=== PATIENT | male | born 1960 | race Hispanic/Latino ===

== ENCOUNTER 2017-07-03 08:08 | Emergency (ER) | payer OTHER ==
[~2017-07-03] VITALS: Ht 165.1 cm; Wt 68.0 kg
[~2017-07-03 08:08] MED LIST: BP MED; CARVEDILOL6.25 MG PO; LISINOPRIL-HCT1 EACH PO; NAPROXEN500 MG PO
[2017-07-03] MEDS ORDERED: FLAGYL500 MG PO (10:51)
[2017-07-03] MEDS ORDERED: CIPRO500 MG PO (10:51)
== END 2017-07-03 11:10 | disposition home or self-care (01) ==
LOC: ED 08:08
DX: K57.92 Diverticulitis of intestine, part unspecified, without perforation or abscess without bleeding (principal); K57.30 Diverticulosis of large intestine without perforation or abscess without bleeding; I10 Essential (primary) hypertension
CPT/HCPCS: 74177; 80053; 81001; 85025; 96360; 99284; J7120; Q9967

== ENCOUNTER 2019-10-06 08:17 | Day surgery (SDC) | payer OTHER ==
--- NOTE | 2019-09-24 16:32 | NUR ---
SPOKE TO PT TODAY REGUARDING COVID TEST NEEDED PRIOR TO PROCEDURE WITH DR. ZUNIGA ON OCT 05. HE REPORTS HE HAD POSSITIVE TEST IN AUGUST AND WAS SYMTOMATIC HE REPORTS HE DOES NOT HAVE SYMTOMS CURRENTLY. PT WILL BE IN FOR COVID TEST ON OCT 03, 2019 FOR TEST
[~2019-10-06] VITALS: Ht 165.1 cm; Wt 68.0 kg
[~2019-10-06 08:17] MED LIST changes: +CIPRO500 MG PO; +FLAGYL500 MG PO
[2019-10-06] MEDS ORDERED: LISINOPRIL-HCT1 EACH PO (08:52)
--- NOTE | 2019-10-06 11:26 | NUR ---
10/06/19 1126 Marichuy Dowling 1040 PT ARRIVED IN PACU SLEEPY WITH NO C/O'S. 1055 AWAKE TALKING TO STAFF. 1105 SITTING UP IN BED SIPPING ON WATER. 1115 DC INSTRUCTIONS GIVEN. ALL QUESTIONS ANSWERED. LEFT VIA W/C.
--- NOTE | 2019-10-06 23:44 | OR ---
[facility] [address], [place] [address] Signed DATE OF OPERATION: 10/06/2019 SURGEON: Marianne Zuniga MD PREOPERATIVE DIAGNOSES: 1. Personal history of colonic polyps in 2015 (54 years old). 2. Diverticulosis. POSTOPERATIVE DIAGNOSES: 1. 4 mm polyps x2 at 35 cm. 2. Iehwntm-sj-hdiqckjy sigmoid diverticulosis. 3. Minimal internal hemorrhoids. PROCEDURE: Colonoscopy with hot biopsy. ESTIMATED BLOOD LOSS: None. INDICATIONS: Matt is a 59-year-old gentleman, asked to see me for a followup colonoscopy. He has no lower GI complaints. There is no family history of colon cancer or polyps. He had adenomatous polyps removed back in May 2014. He is also known to have sigmoid diverticulosis. In the office, I gave Matilde pamphlet on colonoscopy and we looked at that together along with the risks including, but not limited to gas bloating, crampy abdominal pain, bleeding, perforation requiring surgery, and missed diagnosis. I had reviewed the written instructions of the bowel prep with Matt in detail. I explained to Matt that it was exact same bowel prep we used 5 years ago. He also recalls the need for IV conscious sedation. He had expressed understanding and wished to proceed. PROCEDURE NOTE: Matt was taken into our endoscopy suite and placed in the left lateral decubitus position. He was given IV sedation with 5 mg of Versed and 150 mcg of fentanyl. A digital rectal exam was performed and he does have an indurated fvvd-ms-dijnssxwpo enlarged prostate gland, fairly prominent on both sides of the prostate. After this, the adult colonoscope was introduced and advanced all around into the cecum under direct visualization of the camera. It took just a little abdominal compression to move the scope directly into the cecum itself. His prep was good. We could easily see the appendiceal orifice and the ileocecal valve. The scope was then slowly withdrawn. We took pictures throughout for photodocumentation. He had 2 tiny polyps back at 35 cm, Electronically Signed By: MARIANNE ZUNIGA MD 10/06/19 2344 PATIENT NAME: MATT FLORENTINO OPERATIVE REPORT DATE OF : 58 REPORT #: [id number] PHYSICIAN: MARIANNE ZUNIGA MD PCP: BRENDA PRADHAN PAC REPORT IS CONFIDENTIAL AND NOT TO BE RELEASED WITHOUT AUTHORIZATION [facility] [address], [place] [address] Signed which we removed with a hot biopsy forceps. Once again, he has eaxlpko-yk-wsnpgwfs sigmoid diverticulosis. The rectum was unremarkable. Upon retroflexion of scope, he has very minimal internal hemorrhoid tissue. After this, the gas was suctioned out. The colonoscope removed. Matt tolerated the procedure quite well. RECOMMENDATIONS: I will see Matt back in my office in 7 to 14 days to review his results. MD LYUDMILA Miles/CAESARL /[id number] cc: MD Dr. Jesus Miles Chart Filed Incomplete Copies: MARIANNE ZUNIGA MD CHART FILED INCOMPLETE ~ Electronically Signed By: MARIANNE ZUNIGA MD 10/06/19 2344 PATIENT NAME: MATT FLORENTINO OPERATIVE REPORT DATE OF : 58 REPORT #: [id number] PHYSICIAN: MARIANNE ZUNIGA MD PCP: BRENDA PRADHAN PAC REPORT IS CONFIDENTIAL AND NOT TO BE RELEASED WITHOUT AUTHORIZATION
--- NOTE | 2019-10-07 16:47 | PATH ---
[facility] [address], [place] [address] Signed SPECIMEN(S): A COLON POLYP AT 35 CM SPECIMEN SOURCE: A. COLON POLYP AT 35 CM CLINICAL HISTORY: Follow-up colonoscopy for history of polyps/diverticulosis; colon polyps; internal hemorrhoids. MICROSCOPIC DESCRIPTION: Histologic sections of all submitted blocks are examined by light microscopy. These findings, together with the gross examination, support the pathologic diagnosis. FINAL PATHOLOGIC DIAGNOSIS: Colon, polyp at 35 cm, polypectomy: - Fragments of cauterized colonic mucosa with no histopathologic abnormality. - Negative for dysplasia or malignancy. COMMENT: Prominent mucosal lymphoid aggregates are present, which can sometimes be identified as polypoid masses during colonoscopy. Clinical correlation required. NAL:cml:C2NR GROSS DESCRIPTION: The specimen, labeled "LEATHA," and designated on the requisition "colon polypectomy at 35 cm," is received in formalin and consists of three fragments of pink-chowdhury tissue (2.4 x 0.4 x 0.2 cm in aggregate). The specimen is submitted entirely in cassette (A1). AC (under the direct supervision of a pathologist) The Gross Description was prepared using a voice recognition system. The report was reviewed for accuracy; however, sound-alike word errors, addition and/or deletions may occur. If there is any question about this report, please contact Client Services. PERFORMING LABORATORY: The technical component was performed by [facility], [address] [place] [id number] ([employer]: Beatriz Wilcox MD; CLIA# [id number]). [facility], [address] [address] (CLIA# [id number]). PATIENT NAME: BRIT FLORENTINO PATHOLOGY DATE OF : 58 REPORT #: [id number] PHYSICIAN: [facility] PCP: BRENDA PRADHAN PAC REPORT IS CONFIDENTIAL AND NOT TO BE RELEASED WITHOUT AUTHORIZATION [address] [place], [place] [address] Signed Diagnostician: Romy Potter MD Pathologist Electronically Signed 10/07/2019 Copies: ~ PATIENT NAME: BRIT FLORENTINO PATHOLOGY DATE OF : 58 REPORT #: [id number] PHYSICIAN: [facility] PCP: BRENDA PRADHAN PAC REPORT IS CONFIDENTIAL AND NOT TO BE RELEASED WITHOUT AUTHORIZATION
== END 2019-10-06 11:15 | disposition home or self-care (01) ==
LOC: OPS 08:17 → DS 08:20 → OPS 09:45
PROVIDERS: Colon & Rectal Surgery
PROC: 0DBE8ZZ Excision of Large Intestine, Via Natural or Artificial Opening Endoscopic (ICD-10-PCS; principal; 2019-10-06 09:45)
DX: K63.5 Polyp of colon (principal); K64.8 Other hemorrhoids; K57.30 Diverticulosis of large intestine without perforation or abscess without bleeding; I10 Essential (primary) hypertension; N40.0 Benign prostatic hyperplasia without lower urinary tract symptoms; Z86.010 Personal history of colon polyps; Z79.899 Other long term (current) drug therapy; Z79.82 Long term (current) use of aspirin; Z87.891 Personal history of nicotine dependence
CPT/HCPCS: 99153; G0500; J2250; J3010; J7121

== ENCOUNTER 2020-09-02 05:40 | Day surgery (SDC) | payer SELFPAY ==
[~2020-09-02] VITALS: Ht 165.1 cm; Wt 65.0 kg
[2020-09-02] MEDS ORDERED: HYDROCODON-ACE1 EA10 PO (08:03)
== END 2020-09-02 10:40 | disposition home or self-care (01) ==
LOC: DS 05:40
PROVIDERS: ATTEND Specialist
PROC: 3E0T3BZ Introduction of Anesthetic Agent into Peripheral Nerves and Plexi, Percutaneous Approach (ICD-10-PCS; 2020-09-02)
PROC: 01X40Z4 Transfer Ulnar Nerve to Ulnar Nerve, Open Approach (ICD-10-PCS; principal; 2020-09-02 06:45)
DX: G56.22 Lesion of ulnar nerve, left upper limb (principal); G89.18 Other acute postprocedural pain; I10 Essential (primary) hypertension
CPT/HCPCS: 01710; 64415; 64417; 76942; J0690; J1100; J1885; J2250; J7121

== ENCOUNTER 2021-11-13 10:40 | Day surgery (SDC) | payer OTHER ==
[~2021-11-13] VITALS: Ht 165.1 cm; Wt 77.3 kg
[~2021-11-13 10:40] MED LIST changes: +HYDROCODON-ACE1 EA10 PO
[2021-11-13] MEDS ORDERED: MEN'S ONE DAIL1 EACH PO (11:05)
[2021-11-13] MEDS ORDERED: HYDROCODON-ACE1 EA11 PO (15:26)
--- NOTE | 2021-11-13 15:32 | NUR ---
11/13/21 1532 Denisse Espinoza 1519 PATIENT ARRIVES TO PACU SLEEPYING, SNORING AT TIMES. RESP EVEN AND UNLABORED, MASK AT 6 LITERS. 1525 PATIENT AWAKE OFF/ON, BUT DROWSY. RESP EVEN AND UNLABORED, OXYGEN OFF, ROOM AIR SATS >94%. DENIES PAIN OR NAUSEA.
--- NOTE | 2021-11-13 16:02 | NUR ---
1545: PT ARRIVES TO DS RM 3 VIA STRETCHER FROM PACU AWAKE AND ALERT. PT DENIES PAIN IN LEFT ELBOW, STATES "IT FEELS LIKE I SAT ON IT TOO LONG." PT ABLE TO MOVE FINGERS ON LEFT SIDE. PT TOLERATES JUICE/WATER WITH NO NAUSEA. DC CRITERIA EXPLAINED TO PT, CALL LIGHT WITHIN REACH.
--- NOTE | 2021-11-13 16:10 | NUR ---
PT STATES "I AM STARTING TO FEEL PAIN IN MY ELBOW" AND RATES 6/10 WHEN ASKED. PT PROVIDED CRACKERS AND APPLESAUCE IN ANTICIPATION FOR PO PAIN MEDS.
--- NOTE | 2021-11-13 16:46 | NUR ---
THIS RN TO ROOM TO ASSIST WITH POST OP VITAL SIGNS. VITAL SIGNS UNCHANGED. PT REPORTS 6/10 PAIN LEFT ELBOW STATING "IT'S COMING DOWN." PT DENIES NEED FOR ADDITIONAL PAIN MEDICATION. PT DENIES NAUSEA. PT TOLERATING PO FOOD AND FLUIDS. PT ABLE TO MOVE FINGERS OF LEFT HAND, STRONG PULSES NOTED. NUMBNESS TO LEFT FINGERS CONTINUES R/T BLOCK PERFORMED. PT STATES HE IS READY TO GO HOME SOON. PTS PRIMARY RN UPDATED. NO ADDITONAL REQUESTS OR COMPLAINTS. CALL LIGHT WIHTIN REACH. BED RAILS UP.
--- NOTE | 2021-11-13 17:44 | NUR ---
1729: PT RESTING IN BED AWAKE AND ALERT. RATES PAIN 5/[address] SLING IN PL[address] AND PT UP TO BATHROOM WITH STAEDY GAIT, ABLE TO VOID QS WITH NO PROBLEMS. PT DRESSES SELF AND FRIEND NOTIFIED FOR SAFE RIDE HOME. DC INSTRUCTIONS PRESENTED VERBALLY AND WRITTEN, PT ENCOURAGED TO TAKE BP MEDS ONCE HOME. PT DC FROM DS RM 3 VIA WC TO FRIEND WAITING AT MAIN [facility]OPS[facility] ENTRANCE TO HOME.
--- NOTE | 2021-11-17 06:21 | OR ---
[facility] [address] [facility] [place], [place] [address] Signed DATE OF OPERATION: 11/13/2021 SURGEON: Newton Hardy MD PREOPERATIVE DIAGNOSIS: Recurrent ulnar neuritis, left. POSTOPERATIVE DIAGNOSIS: Recurrent ulnar neuritis, left. PROCEDURE PERFORMED: Revision, left ulnar nerve transposition, submuscular. SENIOR ETL DEVELOPER: None. ANESTHESIA: General. BLOOD LOSS: None. TOURNIQUET TIME: 46 minutes. BRIEF HISTORY: Matt is a 61-year-old gentleman with history of ulnar neuritis. He had undergone prior ulnar nerve transposition with recurrent symptoms in his hand. Repeat nerve study showed continued pressure on the ulnar nerve. Risks and benefits of submuscular transposition were discussed with him and he elected to proceed. Once consent was obtained, he was taken to the operating room. After adequate anesthesia, he was placed on the operating table with a hand table. The arm was prepped and draped in a standard sterile fashion. A sterile tourniquet was placed. The arm was then prepped and draped in a standard sterile fashion and the hand was exsanguinated using Esmarch bandage. Tourniquet was inflated to 200 mmHg. The prior incision was marked out and extended this about an inch in each direction. It was carried through skin subcutaneous tissue. Careful dissection through the scar tissue was undertaken. The nerve was first located proximally and was in the subcu tissue with no significant adhesions; however, as we dissected the nerve free of the underlying soft tissue, distally it became densely adherent in the soft tissue with narrowing of the nerve just anterior to the epicondyle. Electronically Signed By: NEWTON HARDY MD 11/17/21 0621 PATIENT NAME: MATT FLORENTINO OPERATIVE REPORT DATE OF : 58 REPORT #: [id number] PHYSICIAN: NEWTON HARDY MD PCP: BRENDA PRADHAN PAC REPORT IS CONFIDENTIAL AND NOT TO BE RELEASED WITHOUT AUTHORIZATION [facility] [address] [place], [place] [address] Signed The nerve was dissected free distally all the way to the arcade. The nerve was circumferentially dissected until it was completely free. Minor neurolysis at the region of the extensive scar tissue was undertaken and the nerve was freed of all surrounding circumferential tissue. It was then transposed under the musculature of the medial . A small subcutaneous fat graft was also placed around the nerve at the region of the adhesions. The muscular fascia was then closed over the top of the nerve and a sling was fashioned proximally. The nerve had good gliding within the postoperative tunnel. Copious irrigation was then used to irrigate the wound. Prior to this, we did cauterize any bleeders with the bipolar cautery. The wound was then closed with 3-0 Monocryl and 3-0 StrataFix and Steri-Strips. The wound was then dressed with Allevyn and a posterior splint. He tolerated the procedure well. All sponge, needle, and instrument counts were correct. Newton Hardy MD BA/CAESARL /[id number] Copies: ~ Electronically Signed By: NEWTON HARDY MD 11/17/21 0621 PATIENT NAME: MATT FLORENTINO Em OPERATIVE REPORT DATE OF : 58 REPORT #: [id number] PHYSICIAN: NEWTON HARDY MD PCP: BRENDA PRADHAN PAC REPORT IS CONFIDENTIAL AND NOT TO BE RELEASED WITHOUT AUTHORIZATION
== END 2021-11-13 17:35 | disposition home or self-care (01) ==
LOC: DS 10:40
PROVIDERS: ATTEND Specialist
PROC: [UNRECOGNIZED PROCEDURE] (principal; 2021-11-13 14:00)
DX: G56.22 Lesion of ulnar nerve, left upper limb (principal); I10 Essential (primary) hypertension
CPT/HCPCS: 64417; 76942; A9270; J0690; J1100; J1885; J2250; J2704; J2795; J3010; J7121